=== PATIENT | male | born 1950 | race Caucasian/White ===

== ENCOUNTER 2020-03-27 13:30 | Emergency (ER) | payer OTHER, MEDICARE ==
[~2020-03-27] VITALS: Ht 177.8 cm; Wt 106.6 kg
[~2020-03-27 13:30] MED LIST: CLOP75TA35 PO; IMD30T PO; LOP25T PO; METF-436 PO; ONDA4TAB6 PO; POTA20PA40 PO; ROSUVASTATIN PO; ZET10T PO
--- NOTE | 2020-03-27 13:40 | NUR ---
Placed patient on c collar per Helder CARROLL.
--- NOTE | 2020-03-27 13:51 | NUR ---
pt to ct,
[2020-03-27] MEDS ORDERED: iohexol 300mg/ml 100ml inj. ONE (13:52)
[2020-03-27 14:04] LABS: BASOPHILS # (AUTO) 0.1 X10'3 (0-0.2); BASOPHILS % (AUTO) 0.7 % (0-1); EOSINOPHILS # (AUTO) 0.3 X10'3 (0-0.9); EOSINOPHILS % (AUTO) 2.4 % (0-6); HEMATOCRIT 50.1 % (42.0-52.0); HEMOGLOBIN 17.2 g/dl (14.0-17.9); LYMPHOCYTES # (AUTO) 1.9 X10'3 (1.1-4.8); LYMPHOCYTES % (AUTO) 16.8 % (21-51); MEAN CORPUSCULAR HEMOGLOBIN 31.3 PG (27.0-31.0); MEAN CORPUSCULAR HGB CONC 34.3 g/dL (33.0-36.5); MEAN CORPUSCULAR VOLUME 91.3 FL (78-98); MEAN PLATELET VOLUME 9.6 FL (7.4-10.4); MONOCYTES % (AUTO) 9.4 % (2-12); NEUTROPHILS # (AUTO) 7.8 X10'3 (1.8-7.7); NEUTROPHILS % (AUTO) 70.7 % (42-75); PLATELET COUNT 208 X10'3 (140-440); RED BLOOD COUNT 5.49 X10'6 (4.70-6.10); RED CELL DISTRIBUTION WIDTH 12.8 % (11.5-14.5); WHITE BLOOD COUNT 11.1 X10'3 (4.5-11.0)
[2020-03-27 14:21] LABS: ALANINE AMINOTRANSFERASE 51 U/L (12-78); ALBUMIN 3.6 G/DL (3.4-5.0); ALBUMIN/GLOBULIN RATIO 0.9 (1.1-1.5); ALKALINE PHOSPHATASE 78 IU/L (46-116); ANION GAP 10 (8-16); ASPARTATE AMINO TRANSFERASE 26 U/L (10-37); BILIRUBIN,TOTAL 0.8 MG/DL (0.1-1.0); BLOOD UREA NITROGEN 24 MG/DL (7-18); BUN/CREATININE RATIO 23.1 (5.4-32.0); CHLORIDE 103 MMOL/L (99-107); CREATININE 1.04 MG/DL (0.60-1.10); GLUCOSE 231 MG/DL (70-104); POTASSIUM 4.5 MMOL/L (3.5-5.1); SODIUM 138 MMOL/L (135-145); TOTAL CARBON DIOXIDE 25.3 MMOL/L (24-32); TOTAL PROTEIN 7.4 G/DL (6.4-8.2); eGFR 71 ML/MIN
[2020-03-27] MEDS ORDERED: HYDROcodone/acetaminophen 5mg/325mg tablet PO ONE (15:05)
[2020-03-27 15:15] VITALS: BP 114/65
--- NOTE | 2020-03-27 15:15 | NUR ---
C collar removed by GLEN Pendleton
[2020-03-29] MEDS ORDERED: MESSAGE TO NURSING PO SCH (14:05)
== END 2020-03-27 15:41 | disposition home or self-care (01) ==
LOC: ER 13:31
DX: R07.89 Other chest pain (principal); M25.562 Pain in left knee; I25.10 Atherosclerotic heart disease of native coronary artery without angina pectoris; I11.0 Hypertensive heart disease with heart failure; I50.9 Heart failure, unspecified; I25.2 Old myocardial infarction; J44.9 Chronic obstructive pulmonary disease, unspecified; E11.9 Type 2 diabetes mellitus without complications; Z90.89 Acquired absence of other organs; Z98.890 Other specified postprocedural states; Z88.8 Allergy status to other drugs, medicaments and biological substances; Z91.018 Allergy to other foods; Z79.899 Other long term (current) drug therapy; W18.39XA Other fall on same level, initial encounter; Y93.89 Activity, other specified; Y92.89 Other specified places as the place of occurrence of the external cause; Y99.8 Other external cause status
CPT/HCPCS: 36415; 70450; 71260; 72125; 80053; 85025; 85610; 86885; 86900; 86901; 93005; 99285; Q9967